=== PATIENT | male | born 1950 | race Caucasian/White ===

== ENCOUNTER 2016-09-06 06:07 | Inpatient (IN) | payer OTHER, BC ==
[2016-08-12 10:21] VITALS: BMI 22.0
--- NOTE | 2016-08-12 11:04 | PAT Medication Instructions ---
Service Date August 12, 2016. Current Home Medication List Aspirin (Aspirin Ec), 81 MG PO QAM Loratadine (Claritin), 10 MG PO QAM Modafinil (Provigil), 200 MG PO BID Multivitamin (Multivitamin), 1 TAB PO PRN Naproxen (Aleve), 220-440 MG PO BID PRN for RN Prednisone Tab (Prednisone), 10 MG PO BID PRN for tube pusher Instructions For Your Scheduled Surgery - Check with surgeon for instructions: Naproxen (Aleve), 220-440 MG PO BID PRN for RN - Continue as directed: Prednisone Tab (Prednisone), 10 MG PO BID PRN for RN - Hold the following medications the morning of surgery: Multivitamin (Multivitamin), 1 TAB PO PRN Loratadine (Claritin), 10 MG PO QAM Modafinil (Provigil), 200 MG PO BID - Take the following medications the morning of surgery with a sip of water: Aspirin (Aspirin Ec), 81 MG PO QAM (okay to continue per surgeon) - Take the following medications as scheduled the night before surgery: Modafinil (Provigil), 200 MG PO BID If you have any questions please call us at [phone] or [phone] or [phone]
--- NOTE | 2016-08-12 12:01 | DIAGNOSTIC IMAGING REPORT ---
CHEST PREADMISSION(PA/LAT) HISTORY: Preop. COMPARISON: None. FINDINGS: Poststernotomy changes and an aortic valve prosthesis. The lungs are clear. The heart is normal in size. No pleural effusions. No pneumothorax. IMPRESSION: No acute process. Electronically signed by: Fabiano Flores M.D. 08/12/2016 12:00 PM Dictated Date/Time: 08/12/2016 11:58 AM
[2016-08-12 12:45] LABS: BASO % 0.3 %; BASO ABS # 0.03 K/uL (0-0.2); COMPLETE YES; EOS % 0.2 %; IG% 0.4 %; LYMPH % 13.4 %; LYMPH ABS # 1.19 K/uL (1.2-3.4); MEAN CELL VOLUME 88.9 fL (80-100); MEAN CORPUSCULAR HEMOGLOBIN 30.1 pg (25-34); MEAN CORPUSCULAR HGB CONC 33.9 g/dl (32-36); MEAN PLATELET VOLUME 8.5 fL (7.4-10.4); MONO % 3.6 %; NEUT % 82.1 %; PLATELET COUNT 252 K/uL (130-400); RED BLOOD COUNT 4.95 M/uL (4.7-6.1); WHITE BLOOD COUNT 8.91 K/uL (4.8-10.8)
[2016-08-12 12:59] LABS: PROTHROMBIN TIME (PATIENT) 10.4 SECONDS (9.0-12.0)
[2016-08-12 13:01] LABS: URINE APPEARANCE CLEAR (CLEAR); URINE BILIRUBIN NEG (NEG); URINE COLOR YELLOW; URINE NITRITE NEG (NEG); URINE SPECIFIC GRAVITY 1.008 (1.000-1.030); UROBILINOGEN NEG (NEG); ZZUR CULT IF INDIC CLEAN CATCH NO
[2016-08-12 13:11] LABS: MANUAL MICROSCOPIC REQUIRED? NO; REVIEW REQ? NO
[2016-08-12 13:21] LABS: BUN/CREATININE RATIO 16.3 (10-20); CREATININE 0.88 mg/dl (0.60-1.40); POTASSIUM 4.7 mmol/L (3.5-5.1)
[2016-08-12 13:30] LABS: CALCIUM 9.1 mg/dl (8.5-10.1)
--- NOTE | 2016-09-02 08:55 | HISTORY & PHYSICAL EXAMINATION ---
DATE OF ADMISSION: 09/06/2016 CHIEF COMPLAINT: Bilateral knee pain. HISTORY OF PRESENT ILLNESS: Mr. Ludwig is a 66-year-old male with a 10-year history of bilateral knee pain, right is worse than the left. He rates his pain a 10/10. He has pain with his daily activities. He has limited standing and walking tolerance. Pain is worse with weightbearing. The patient ambulates with a cane. He has had injections, bracing, NSAIDs without relief. He has failed conservative treatment and is scheduled for staged total knee replacements. PAST MEDICAL HISTORY: Aortic aneurysm and MS. He denies heart disease, diabetes or DVT. PAST SURGICAL HISTORY: Aortic valve replacement, low back discectomy, triple bypass. SOCIAL HISTORY: The patient drinks 2 drinks per week. He denies tobacco use. He lives in a 3-story home. He is and retired. FAMILY HISTORY: Negative for DVT. MEDICATIONS: Provigil 200 mg twice daily, Aleve 200 mg twice daily, prednisone 10 mg 2 daily p.r.n., Claritin p.r.n., aspirin 81 mg daily. ALLERGIES: None. REVIEW OF SYSTEMS: See HPI. Ten other systems reviewed, all negative. PHYSICAL EXAMINATION: VITAL SIGNS: Height 5 feet 10, weight 158 pounds, BMI 23. GENERAL: This is a well-developed, well-nourished male who is alert and oriented x3. Mood and affect are appropriate. HEAD, EYES, EARS, NOSE, AND THROAT: Normocephalic, atraumatic. Mucous membranes are moist and intact. NECK: Supple without lymphadenopathy. HEART: Regular rate and rhythm without murmurs, rubs or gallops. LUNGS: Clear to auscultation without wheezes or rhonchi. ABDOMEN: Soft and nontender. Bowel sounds are equal and active. EXTREMITIES: No ecchymosis, redness or warmth. Thigh and calf are soft and nontender. He has varus deformity. Range of motion is from 0-115 degrees with +2 laxity. He is neurovascularly intact with +5/5 strength. X-RAY EXAMINATION: AP and lateral views show joint space narrowing and osteophyte formation with severe varus deformity. IMPRESSION: Degenerative joint disease, right knee. PLAN: The patient will be admitted for a right total knee arthroplasty. We will plan on aspirin for DVT prophylaxis. The patient is going to do outpatient physical therapy in [facility] PCP is mK Mcclellan.
[~2016-09-06] VITALS: Ht 177.8 cm; Wt 71.5 kg
[2016-09-06] VITALS (8 sets, daily range): BP systolic 123–147; BP diastolic 68–90; PULSE 61–81; TEMP 36.5–37; O2SAT 93–97; Ht 177.8 cm; Wt 71.5 kg
[~2016-09-06 06:07] MED LIST: ACETAMINOPHEN 500 MG TAB PO SCH; ASPI81TA28 PO; ATEN25TA PO; CEFAZOLIN 2000 MG/60 ML D5W 60 ML IV SCH; CLR10 PO; CeleBREX 200 MG CAP PO SCH; DEXAMETHASONE 4 MG TAB PO SCH; FAMOTIDINE 20 MG TAB PO SCH; GABAPENTIN 300 MG CAP PO SCH; LACTATED RINGER'S 1000ML 1,000 ML IV SCH; LACTATED RINGER'S 1000ML 500 ML IV ONE; METOCLOPRAMIDE HCL 10 MG TAB PO SCH; MODA1TAB PO; MULT-506 PO; NAPR1TAB9 PO; OXYCODONE HCL 10 MG TABCR (OXYCONTIN) PO SCH; POLYMYXIN B SULFATE 100,000 UNITS in NSS 100ML IR SCH; PRED10TA PO; ROPIVACAINE 5MG/ML 30 ML 150 MG, BUPIVACAINE/EPINEPHR 0.5% MPF 30 ML, KETOROLAC TROMETH... INFIL SCH; TRANEXAMIC ACID INJ 1,000 MG in SODIUM CHLORIDE 0.9% 100ML 100 ML IV SCH; VANCOMYCIN INJ 400 MG in NSS 100ML IR SCH
--- NOTE | 2016-09-06 06:49 | History & Physical Bridge Note ---
H&P Re-Evaluation Bridge Note: I have examined the patient, reviewed the History & Physical and in the interval since the performance of the History & Physical I have noted the following changes of clinical significance: No changes noted
[2016-09-06] MEDS ORDERED: BUPIVACAINE 0.25% 30 ML VIAL ONE (07:15)
[2016-09-06] MEDS ORDERED: BUPIVACAINE 0.5 % 5 MG/1 ML PF 10ML VIAL ONE (07:15)
[2016-09-06] MEDS ORDERED: ORTHO JOINT ANESTHETIC ONE (07:22)
[2016-09-06] MEDS ORDERED: BUPIVACAINE/EPINEPHRINE 0.25% 1:200,000 30 ML VIAL ONE (07:22)
[2016-09-06] MEDS ORDERED: POVIDONE-IODINE OP SOLN 30 ML BTL ONE (07:22)
[2016-09-06] MEDS ORDERED: BACITRACIN 50000 UNIT VIAL ONE (07:23)
[2016-09-06] MEDS ORDERED: MIDAZOLAM HCL 1 MG/ML 2ML VIAL ONE ×2 (08:01)
[2016-09-06] MEDS ORDERED: FENTANYL CITRATE INJ 50 MCG/1 ML 2 ML VIAL ONE (08:02)
[2016-09-06] MEDS ORDERED: HYDROCORTISONE SOD SUCCINATE 100 MG/2 ML VIAL ONE (08:40)
[2016-09-06] MEDS ORDERED: LACTATED RINGER'S 1000ML 1,000 ML IV PRN (09:16)
[2016-09-06] MEDS ORDERED: ONDANSETRON INJ 2 MG/ML 2 ML VIAL IV PRN ×2 (09:30→10:15)
[2016-09-06] MEDS ORDERED: FENTANYL CITRATE INJ 50 MCG/1 ML 2 ML VIAL IV PRN (09:30)
--- NOTE | 2016-09-06 10:04 | [facility] Post Operative Brief Note ---
Immediate Operative Summary Operative Date Sep 06, 2016. Pre-Operative Diagnosis Degenerative joint disease right knee Post-Operative Diagnosis same as preoperative diagnosis Procedure(s) Performed right total knee arthroplasty Surgeon Dr. Virk Licensed Psychologist Director Surgeon(s) Leonides Alonso PA-C Estimated Blood Loss 75mL Findings severe dz Specimens A. Right knee bone and tissue Complication(s) None Disposition Recovery Room / PACU
[2016-09-06] MEDS ORDERED: TRAMADOL HCL 50 MG TAB PO PRN (10:15)
[2016-09-06] MEDS ORDERED: SOD PHOSPHATE/SOD BIPHOSPHATE ENEMA 132 ML BTL PR PRN (10:15)
[2016-09-06] MEDS ORDERED: ALUMINUM/MAGNESIUM/SIMETH (MAALOX MAX) 30 ML UDC PO PRN (10:15)
[2016-09-06] MEDS ORDERED: KETOROLAC TROMETHAMINE 15 MG/ML VIAL IV. PRN (10:15)
[2016-09-06] MEDS ORDERED: ZOLPIDEM TARTRATE 5 MG TAB PO PRN (10:15)
[2016-09-06] MEDS ORDERED: DiphenhydrAMINE HCL 50 MG/ML VIAL IV PRN (10:15)
[2016-09-06] MEDS ORDERED: MAGNESIUM HYDROXIDE SUSP 30 ML UDC PO PRN (10:15)
[2016-09-06] MEDS ORDERED: OXYCODONE HCL IR 5 MG TAB (IMMEDIATE RELEASE) PO PRN (10:15)
[2016-09-06] MEDS ORDERED: METOCLOPRAMIDE HCL INJ 5 MG/ML 2 ML VIAL IV PRN (10:15)
[2016-09-06] MEDS ORDERED: MoRPHine SULFATE 2 MG/ML CARP IV PRN (10:15)
[2016-09-06] MEDS ORDERED: BISACODYL 10 MG SUPP PR PRN (10:15)
--- NOTE | 2016-09-06 11:01 | OPERATIVE REPORT ---
DATE OF OPERATION: 09/06/2016 PREOPERATIVE DIAGNOSIS: Severe degenerative arthritis, right knee. POSTOPERATIVE DIAGNOSIS: Same. PROCEDURE: Right total knee with patient matched implant. SURGEON: Dr. Virk. FREIGHT INSPECTOR: SHEN Garcia ANESTHESIA: Spinal. BLOOD LOSS: 75 mL. REPLACEMENT FLUIDS: 1800 mL of crystalloid. DRAINS: Hemovac x2. CULTURES: None. COMPLICATIONS: None. COMPONENTS USED: [employer] [place] Knee System: Femur size 7, tibia size 5 x 10, patella size 38. NOTE: SHEN Garcia was present and assisted throughout due to the complicated nature of this case. He helped with preparation and setup, first assisted throughout and personally closed the capsule, subcutaneous and skin layers and applied the postoperative dressing. DESCRIPTION OF PROCEDURE: Following satisfactory spinal, the patient was supine. A tourniquet was placed but not inflated. The lower extremity was prepared with ChloraPrep and draped sterilely. Following a surgical time-out, a midline incision was made with a median parapatellar arthrotomy. Hemostasis was controlled. The knee showed severe grade 4 changes with significant bone loss medially. The patella was prepared first. The patient matched femoral block was then applied. Femoral distal rotation and resection were set and completed and then the 4-in-1 block was used to finish preparation of the femur. The patient matched tibial block was applied. Tibial resection was completed. The patella was freehand cut. Soft tissue balancing was completed and a trial reduction showed good tensioning stability on the collateral ligaments, full extension and flexion to more than 120 degrees with patella tracking well. The collateral ligaments were stable. The trial components were removed. The capsule was prepared with the orthopedic cocktail and after irrigation, the components were cemented using Simplex G cement. When the cement had hardened, the knee was checked and showed good stability. A Betadine soak was performed for 3 minutes. The Betadine was then irrigated. Two drains were placed. The arthrotomy was closed with a running suture of 0 V-Loc. The subcutaneous tissues with 2-0 Vicryl and the skin with a running subcuticular stitch of 3-0 V-Loc. Dermabond and a dry dressing were applied. The patient was returned to his bed in stable condition. I attest to the content of the Intraoperative Record and any orders documented therein. Any exception s are noted below.
--- NOTE | 2016-09-06 11:04 | DIAGNOSTIC IMAGING REPORT ---
RIGHT KNEE 2 VIEWS History: Right total knee arthroplasty. Degenerative arthritis. Postop. FINDINGS: The patient is status post a right total knee arthroplasty. The hardware is intact. No fracture or dislocation. Surgical drains are in place. IMPRESSION: Right total knee arthroplasty. No evidence for hardware complication. Electronically signed by: Fabiano Flores M.D. 09/06/2016 11:02 AM Dictated Date/Time: 09/06/2016 11:02 AM
--- NOTE | 2016-09-06 11:24 | Anesthesiology Progress Note ---
Anesthesia Post Op Note Date & Time Sep 06, 2016 at 11:23 Vital Signs Pain Intensity: 0 Vital Signs Past 12 Hours Date Time Temp Pulse Resp B/P (MAP) Pulse Ox O2 Delivery O2 Flow Rate FiO2 09/06/16 11:15 67 12 114/65 95 Oxymask 2 09/06/16 11:05 67 12 119/69 95 Oxymask 2 09/06/16 10:55 75 12 111/65 97 Oxymask 9 09/06/16 10:45 75 12 126/71 97 Oxymask 9 09/06/16 10:39 36.6 81 12 120/76 97 Oxymask 9 09/06/16 06:41 36.5 73 20 147/90 97 Room Air Notes Mental Status: alert / awake / arousable, participated in evaluation Pt Amnestic to Procedure: Yes Nausea / Vomiting: adequately controlled Pain: adequately controlled Airway Patency, RR, SpO2: stable & adequate BP & HR: stable & adequate Hydration State: stable & adequate Neuraxial Anesthesia: was administered, sensory block is resolving Anesthetic Complications: no major complications apparent Pt doing well.
[2016-09-06] MEDS: D5W AND 1/2NSS + 20MEQ KCL 1,000 ML IV SCH ×2 (12:26→21:56)
[2016-09-06] MEDS: ACETAMINOPHEN 500 MG TAB PO SCH ×2 (14:08→21:53)
[2016-09-06] MEDS: MODAFINIL 100 MG TAB PO SCH (14:51)
[2016-09-06] MEDS: CEFAZOLIN IV 1,000 MG in DEXTROSE 5% 50ML 50 ML IV SCH ×2 (15:30→23:13)
[2016-09-06] MEDS ORDERED: TRANEXAMIC ACID INJ 1,000 MG in SODIUM CHLORIDE 0.9% 100ML 100 ML IV SCH (17:00)
[2016-09-06] MEDS: ASPIRIN 81 MG ECTAB PO SCH (20:43)
[2016-09-06] MEDS ORDERED: SENNA 8.6 MG TAB PO SCH (21:00)
[2016-09-07 04:05] VITALS: BP 151/72; PULSE 63; TEMP 36.9; O2SAT 96
[2016-09-07] MEDS: ACETAMINOPHEN 500 MG TAB PO SCH (05:58)
[2016-09-07 06:05] LABS: HEMATOCRIT 33.4 % (42-52); MEAN CELL VOLUME 89.5 fL (80-100); MEAN CORPUSCULAR HGB CONC 33.5 g/dl (32-36); MEAN PLATELET VOLUME 8.7 fL (7.4-10.4); PLATELET COUNT 232 K/uL (130-400); RED BLOOD COUNT 3.73 M/uL (4.7-6.1); WHITE BLOOD COUNT 13.81 K/uL (4.8-10.8)
[2016-09-07] MEDS: MODAFINIL 100 MG TAB PO SCH (06:11)
[2016-09-07 06:45] LABS: BUN/CREATININE RATIO 17.2 (10-20); CALCIUM 7.6 mg/dl (8.5-10.1); CREATININE 0.74 mg/dl (0.60-1.40); POTASSIUM 3.8 mmol/L (3.5-5.1)
--- NOTE | 2016-09-07 07:28 | Orthopedic Progress Note ---
Orthopedic Progress Note Date of Service Sep 07, 2016. Subjective Post OP Day: 1 (R TKA ) Reports: feeling well, pain controlled w PO medications, Denies: complaints, chest pain, SOB, nausea / vomiting, light headedness Objective calves soft nontender, dressing C/D/I, A&O x3, toes mobile, hemovac drainage ( 275 LAST SHIFT ) Date Time Temp Pulse Resp B/P (MAP) Pulse Ox O2 Delivery O2 Flow Rate FiO2 09/07/16 04:05 36.9 63 16 151/72 (98) 96 Room Air 09/06/16 23:15 Room Air 09/06/16 23:00 36.9 61 16 134/70 (91) 96 Room Air 09/06/16 20:10 37.0 81 18 142/80 (100) 95 Room Air 09/06/16 15:30 Nasal Cannula 2.0 09/06/16 14:46 36.7 66 16 146/78 (100) 95 Nasal Cannula 2.0 09/06/16 13:50 76 20 130/70 (90) 96 Nasal Cannula 2.0 09/06/16 12:50 36.9 65 16 125/68 (87) 93 Nasal Cannula 2.0 09/06/16 12:24 68 16 126/69 (88) 95 Nasal Cannula 2.0 09/06/16 12:15 95 Nasal Cannula 2.0 09/06/16 12:10 Nasal Cannula 2.0 09/06/16 12:05 36.8 76 16 123/69 (87) 95 Nasal Cannula 2.0 09/06/16 11:20 36.6 67 12 126/70 95 Oxymask 2 09/06/16 11:15 67 12 114/65 95 Oxymask 2 09/06/16 11:05 67 12 119/69 95 Oxymask 2 09/06/16 10:55 75 12 111/65 97 Oxymask 9 09/06/16 10:45 75 12 126/71 97 Oxymask 9 09/06/16 10:39 36.6 81 12 120/76 97 Oxymask 9 Laboratory Results 24 Hours: Test 09/07/16 05:10 Hematocrit 33.4 % Hemoglobin 11.2 g/dL Assessment & Plan Assessment: POD 1 R TKA Plan: HOME TODA WILL DO OPPT LEAVE DRESSING AND DRAIN IN PLACE WILL COME IN WED FOR DC Inhouse Planning Pain Management: Celebrex, PO Tylenol, Oxy IR DVT Prophylaxis: TEDs, SCDs, ASA Discharge Planning Discharge Planning: home with oppt Pain Management: Celebrex, PO Tylenol, Oxy IR DVT Prophylaxis: TEDs, ASA
[2016-09-07] MEDS ORDERED: DEXAMETHASONE 4 MG TAB PO SCH (07:30)
[2016-09-07] MEDS ORDERED: RXC5 PO (07:34)
[2016-09-07] MEDS ORDERED: CLB200 PO (07:34)
[2016-09-07] MEDS ORDERED: SNK PO (07:34)
[2016-09-07] MEDS ORDERED: ASPI81TA28 PO (07:34)
--- NOTE | 2016-09-07 07:39 | Discharge Instructions ---
Discharge Instructions Date of Service Sep 07, 2016. Admission Reason for Admission: Right Knee Degenerative Joint Disease Discharge Discharge Diagnosis / Problem: Right Knee Djd Discharge Goals Goal(s): Decrease discomfort, Improve function, Increase independence Activity Recommendations Activity Limitations: per Instructions/Follow-up section Weightbearing Status: Right weightbearing (as tolerated) . Instructions / Follow-Up Instructions / Follow-Up ACTIVITY RECOMMENDATIONS: SELF CARE INSTRUCTIONS AFTER TOTAL KNEE REPLACEMENT A. You may need to continue a physical therapy program after discharge from the hospital. There are several options available to you. Your doctor will assist you in selecting the best one for you. 1. An out-patient facility 2 to 3 times a week for therapy or home therapy. 2. Continue working on all exercises taught to you in the hospital. Your goals should be to increase bending of your knee to 90 degrees and beyond and to fully straighten your knee. B. You may progress at your own pace from walking with a walker or crutches to a cane; then to no assistive devices. C. Make walking a part of your daily routine. Be up as much as comfortable with rest periods throughout the day. Rest with leg elevation is very important. Use the ice wrap frequently for the first 3-4 weeks. D. There are no restrictions on activities. You may ride in a car, shop, participate in direct support staff member and all social activities. E. Wear the long elastic stockings (ANA LILIA hose) 20 hours a day for 2 weeks after surgery. They can be removed several times a day for laundering and for a bath. F. You may shower, no tub baths until cleared by your doctor. SPECIAL CARE INSTRUCTIONS: VERY IMPORTANT TO READ AND REVIEW A. There are a few signs you need to watch for after you are home. Call [facility] if you notice any of the followin. Increased severe knee pain. Some pain is expected especially when you exercise. 2. Increased swelling in your leg or knee; pain or swelling of the calf muscle in either lower leg. 3. Any fluid drainage from the incision. 4. Shortness of breath or chest pain. B. Please call [facility] at if you have any concerns or questions about your operation or recovery. The doctor or his nurse will return your call promptly. C. You must take antibiotics before dental work, bladder, bowel or other surgery. Your doctor will provide you with a permanent care to carry describing this precaution. IMPORTANT: * REMEMBER TO TAKE ASPIRIN, 81 MG, TWICE DAILY FOR 4 WEEKS UNLESS OTHERWISE DIRECTED. THIS IS YOUR BLOOD THINNER. * HIGH RISK PATIENTS MAY BE PRESCRIBED A STRONGER BLOOD THINNER. THIS WILL BE PROVIDED AT DISCHARGE. * CALL IF INCREASED PAIN, REDNESS, DRAINAGE OR FEVER GREATER THAT 101. * WEAR ANA LILIA HOSE 20 HOURS PER DAY FOR 2 WEEKS. * DERMABOND Prineo- This is a mesh tape dressing that is covered with glue. It should remain in place until the incision is properly healed, usually 10-14 days. This dressing is designed to naturally slough off. You may trim the excess mesh tape as it peels off. Incision may be briefly wet in a shower. Dry immediately by blotting with a clean, dry towel. Do not bath or swim until instructed by your doctor. Do not scratch, rub, or pick at the dressing. Do not apply any topical ointments or lotions until dressing is completely removed and/or instructed by your doctor. There may be a small piece of suture material at one end of your incision. Do not pull or trim this. If it is bothersome or catching on clothing, you may cover it with a band-aid. . FOLLOW UP VISIT: If appointment is not already scheduled: Please call [facility] to make a follow-up appointment for 2 weeks after your surgery at . Current Hospital Diet Patient's current hospital diet: Regular Diet Discharge Diet Recommended Diet: Regular Diet Procedures Procedures Performed: right total knee arthroplasty Pending Studies Studies pending at discharge: no Medical Emergencies . Who to Call and When: Medical Emergencies: If at any time you feel your situation is an emergency, please call 911 immediately. . Non-Emergent Contact Non-Emergency issues call your: Surgeon Call Non-Emergent contact if: temperature is above 101.5, your pain is not controlled, your pain is worsening, wound has increased drainage, wound has increased redness . "Provider Documentation" section prepared by Leonides Alonso. . VTE Core Measure Inpt VTE Proph given/why not?: Other Anticoagulation, T.E.D. Stockings, SCD's [place] Drug Monitoring Program Search Results: patient reviewed within database, no issues identified
[2016-09-07 07:54] VITALS: BP 142/74; PULSE 75; TEMP 36.6; O2SAT 95
[2016-09-07 08:00] VITALS: O2SAT 95
--- NOTE | 2016-09-07 08:00 | Anesthesiology Progress Note ---
Anesthesia Post Op Note Date & Time Sep 07, 2016 at 07:59 Vital Signs Vital Signs Past 12 Hours Date Time Temp Pulse Resp B/P (MAP) Pulse Ox O2 Delivery O2 Flow Rate FiO2 09/07/16 07:54 36.6 75 14 142/74 (96) 95 Room Air 09/07/16 07:47 Room Air 09/07/16 04:05 36.9 63 16 151/72 (98) 96 Room Air 09/06/16 23:15 Room Air 09/06/16 23:00 36.9 61 16 134/70 (91) 96 Room Air 09/06/16 20:10 37.0 81 18 142/80 (100) 95 Room Air Notes Mental Status: alert / awake / arousable, participated in evaluation Pt Amnestic to Procedure: Yes Nausea / Vomiting: adequately controlled Pain: adequately controlled Airway Patency, RR, SpO2: stable & adequate BP & HR: stable & adequate Hydration State: stable & adequate Neuraxial Anesthesia: was administered, sensory block resolved Anesthetic Complications: no major complications apparent
[2016-09-07] MEDS: D5W AND 1/2NSS + 20MEQ KCL 1,000 ML IV SCH (08:18)
[2016-09-07] MEDS: ASPIRIN 81 MG ECTAB PO SCH (08:19)
[2016-09-07 08:38] VITALS: BP 142/74; PULSE 75; TEMP 36.6; O2SAT 95
[2016-09-07] MEDS ORDERED: LORATADINE 10 MG TAB PO SCH (09:00)
[2016-09-07] MEDS ORDERED: MULTIVITAMIN TAB PO SCH (09:00)
[2016-09-07] MEDS ORDERED: PANTOprazole SOD 40 MG TAB PO SCH (09:00)
[2016-09-08] MEDS ORDERED: CeleBREX 200 MG CAP PO SCH (21:00)
--- NOTE | 2016-09-09 15:43 | DISCHARGE SUMMARY ---
DISCHARGE DIAGNOSIS: Degenerative joint disease, right knee. SECONDARY DIAGNOSES: Aortic aneurysm, history of MS. CONSULTS: None. COMPLICATIONS: None. PROCEDURES: Right total knee arthroplasty performed by Dr. Ilir Virk on 09/06/2016. BRIEF HISTORY: As dictated in history and physical. HOSPITAL SUMMARY: The patient was admitted on the above-noted date and had the above-noted surgery performed which he tolerated well. On the first postoperative day, patient was feeling well. Pain was controlled. Calves were soft, nontender. Dressings clean, dry and intact. Toes were mobile. Vital signs were stable. He was afebrile. Systolic blood pressures fluctuated, highest being 151, but patient was remaining asymptomatic. Hemoglobin was 11.2 and he was started on physical therapy protocol and continued on DVT prophylaxis and pain management. He was progressing well with his physical therapy and remaining stable and it was felt that he could be discharged to home with dressings and drain in with plans for home health [facility] services to remove the dressing and drain the following day. He was thusly discharged to home on 09/07/2016. For further review, please see chart. LAB AND X-RAY DATA: As per chart. DISCHARGE INSTRUCTIONS: The patient was discharged to home in satisfactory condition on 09/07/2016. DIET: Regular. ACTIVITY: Weightbearing as tolerated right lower extremity. Follow TKA instruction sheets and special care instructions as noted. Follow up with Dr. Virk in 2 weeks. The patient to call for appointment if one has not been made for you. DISCHARGE MEDICATIONS: Celebrex 200 mg p.o. b.i.d., oxycodone 5-10 mg p.o. q. 4 hours p.r.n., senna 17.2 mg at bedtime. Resume taking atenolol 25 mg p.o. daily, loratadine 10 mg p.o. q.a.m., modafinil 200 mg p.o. b.i.d., multivitamin 1 tab p.o. p.r.n., prednisone 10 mg p.o. b.i.d. p.r.n., aspirin changed to 81 mg p.o. b.i.d. for 30 days and then resume once daily dosing. Stop taking naproxen.
[2016-10-04] MEDS ORDERED: ACET-1256 PO (08:19)
[2016-10-04] MEDS ORDERED: ASPI-435 PO (08:19)
[2016-10-04] MEDS ORDERED: CLB100 PO (08:19)
== END 2016-09-07 11:19 | disposition home or self-care (01) | DRG 470 ==
LOC: C.ACU 06:07 → C.3E 06:30 → ENRESERV 11:20
PROVIDERS: ADMIT Orthopaedic Surgery; ATTEND Orthopaedic Surgery
PROC: 0SRC0J9 Replacement of Right Knee Joint with Synthetic Substitute, Cemented, Open Approach (ICD-10-PCS; principal; 2016-09-06 08:15)
DX: M17.0 Bilateral primary osteoarthritis of knee (principal); M21.161 Varus deformity, not elsewhere classified, right knee; G35 Multiple sclerosis; I10 Essential (primary) hypertension; I25.10 Atherosclerotic heart disease of native coronary artery without angina pectoris; I71.9 Aortic aneurysm of unspecified site, without rupture; Z72.0 Tobacco use; Z95.2 Presence of prosthetic heart valve; Z95.1 Presence of aortocoronary bypass graft; Z79.82 Long term (current) use of aspirin; Z79.52 Long term (current) use of systemic steroids; Z79.899 Other long term (current) drug therapy

== ENCOUNTER 2016-10-11 11:51 | Inpatient (IN) | payer OTHER, BC ==
[2016-10-04 08:30] VITALS: Ht 177.8 cm; Wt 71.5 kg
--- NOTE | 2016-10-08 18:19 | History and Physical ---
History & Physical Date Oct 08, 2016. Chief Complaint LEFT KNEE PAIN History of Present Illness The patient is a 66 year old male with complaints of left knee pain for several years now. Had right tka and doing well. Cant do activity of daily living. has tried pt, nsaids and injections. hes ready for knee replacement. Past Medical/Surgical History Surgical Problems: (1) Post-operative state AVR RIGHT TKA Additional History Hepatic Disease: No Endocrine Disorder: No Kidney Disease: No Hypertension: No Heart Disease: Yes (hx of aortic valve replacement.) Bleeding Tendencies: No Infectious Diseases: No Allergies Coded Allergies: No Known Allergies (Unverified , 10/04/16) Home Medications Scheduled Aspirin (Aspirin 81), 81 MG PO QAM Celecoxib (Celebrex), 1 CAP PO BID Modafinil (Provigil), 200 MG PO BID Multivitamin (Multivitamin), 1 TAB PO PRN Scheduled PRN Acetaminophen (Tylenol), 1,000 MG PO BID PRN for Pain Physical Examination Skin: warm/dry, no rash Eyes: normal inspection, EOMI, sclerae normal ENT: normal ENT inspection, pharynx normal Head: normocephalic, atraumatic Neck: supple, no adenopathy, trachea midline Respiratory/Chest: lungs clear, normal breath sounds, no respiratory distress Cardiovascular: regular rate, rhythm, no edema, no murmur Abdomen / GI: normal bowel sounds, non tender Back: normal inspection Extremities: + pertinent finding (pain with motion of left knee. decreased motion as well. ) Neurologic/Psych: no motor/sensory deficits, alert, normal reflexes, oriented x 3 Diagnosis DJD LEFT KNEE Plan of Treatment ADMIT TO [facility]. PLAN IS FOR LEFT KNEE REPLACEMENT.
[~2016-10-11] VITALS: Ht 177.8 cm; Wt 71.5 kg
[2016-10-11] VITALS (8 sets, daily range): BP systolic 121–146; BP diastolic 63–91; PULSE 61–95; TEMP 36.4–37; O2SAT 94–97
[~2016-10-11 11:51] MED LIST changes: +ACET-1256 PO; +ASPI-435 PO; -ASPI81TA28 PO; -ATEN25TA PO; +BUPIVACAINE 0.25% 30 ML VIAL ONE; +BUPIVACAINE 0.5 % 5 MG/1 ML PF 10ML VIAL ONE; +CEFAZOLIN 1000MG/55 ML D5W 55 ML IV SCH; -CEFAZOLIN 2000 MG/60 ML D5W 60 ML IV SCH; +CLB100 PO; -CLR10 PO; +FENTANYL CITRATE INJ 50 MCG/1 ML 2 ML VIAL ONE; -GABAPENTIN 300 MG CAP PO SCH; +MIDAZOLAM HCL 1 MG/ML 2ML VIAL ONE; -NAPR1TAB9 PO; -OXYCODONE HCL 10 MG TABCR (OXYCONTIN) PO SCH; -POLYMYXIN B SULFATE 100,000 UNITS in NSS 100ML IR SCH; -PRED10TA PO; -TRANEXAMIC ACID INJ 1,000 MG in SODIUM CHLORIDE 0.9% 100ML 100 ML IV SCH; -VANCOMYCIN INJ 400 MG in NSS 100ML IR SCH
[2016-10-11] MEDS ORDERED: POVIDONE-IODINE OP SOLN 30 ML BTL ONE (12:32)
[2016-10-11] MEDS ORDERED: ORTHO JOINT ANESTHETIC ONE (12:32)
[2016-10-11] MEDS ORDERED: BACITRACIN 50000 UNIT VIAL ONE (12:32)
[2016-10-11] MEDS: TRANEXAMIC ACID INJ 1,000 MG in SODIUM CHLORIDE 0.9% 100ML 100 ML IV SCH ×2 (12:47→17:18)
[2016-10-11] MEDS ORDERED: KETOROLAC TROMETHAMINE 15 MG/ML VIAL IV. PRN (13:00)
[2016-10-11] MEDS ORDERED: EpHEDrine SULFATE INJ 50 MG/ML AMP IV PRN (13:00)
[2016-10-11] MEDS ORDERED: HYDROmorphone INJ 2 MG/ML SYR/VIAL IV PRN (13:00)
[2016-10-11] MEDS ORDERED: PHENYLEPHRINE 100MCG/ML 5ML SYR IV PRN (13:00)
[2016-10-11] MEDS ORDERED: ATROPINE SULFATE 0.1 MG/ML 5ML SYR IV PRN (13:00)
[2016-10-11] MEDS ORDERED: ONDANSETRON INJ 2 MG/ML 2 ML VIAL IV PRN ×2 (13:00→14:30)
[2016-10-11] MEDS ORDERED: PROPOFOL IV EMULSION 10 MG/ML 20 ML VIAL IV ONE ×2 (13:54→14:31)
--- NOTE | 2016-10-11 14:26 | [facility] Post Operative Brief Note ---
Immediate Operative Summary Operative Date Oct 11, 2016. Pre-Operative Diagnosis Degenerative joint disease left knee Post-Operative Diagnosis Degenerative joint disease left knee Procedure(s) Performed Left total knee arthroplasty Surgeon Dr. Timi Kumar Journeyman Press Operator Surgeon(s) Leonides Alonso PA-C Estimated Blood Loss 20cc Findings as above Specimens A. Left knee bone and tissue Complication(s) None Disposition Recovery Room / PACU
[2016-10-11] MEDS ORDERED: ALUMINUM/MAGNESIUM/SIMETH (MAALOX MAX) 30 ML UDC PO PRN (14:30)
[2016-10-11] MEDS ORDERED: BISACODYL 10 MG SUPP PR PRN (14:30)
[2016-10-11] MEDS ORDERED: MAGNESIUM HYDROXIDE SUSP 30 ML UDC PO PRN (14:30)
[2016-10-11] MEDS ORDERED: ZOLPIDEM TARTRATE 5 MG TAB PO PRN (14:30)
[2016-10-11] MEDS ORDERED: OXYCODONE HCL IR 5 MG TAB (IMMEDIATE RELEASE) PO PRN (14:30)
--- NOTE | 2016-10-11 15:42 | Anesthesiology Progress Note ---
Anesthesia Post Op Note Date & Time Oct 11, 2016 at 15:42 Vital Signs Pain Intensity: 0 Vital Signs Past 12 Hours Date Time Temp Pulse Resp B/P (MAP) Pulse Ox O2 Delivery O2 Flow Rate FiO2 10/11/16 15:35 70 18 119/68 95 Nasal Cannula 2 10/11/16 15:25 63 14 124/75 95 Nasal Cannula 2 10/11/16 15:15 76 18 116/74 95 Nasal Cannula 2 10/11/16 15:05 93 14 112/71 95 Nasal Cannula 2 10/11/16 14:59 36.2 84 12 116/69 95 Nasal Cannula 2 10/11/16 12:23 96 Room Air 10/11/16 12:21 36.5 95 20 138/91 Notes Mental Status: alert / awake / arousable, participated in evaluation Pt Amnestic to Procedure: Yes Nausea / Vomiting: adequately controlled Pain: adequately controlled Airway Patency, RR, SpO2: stable & adequate BP & HR: stable & adequate Hydration State: stable & adequate Anesthetic Complications: no major complications apparent
[2016-10-11] MEDS: SODIUM CHLORIDE 0.9% 1000ML 1,000 ML IV SCH (17:19)
--- NOTE | 2016-10-11 18:31 | OPERATIVE REPORT ---
DATE OF OPERATION: 10/11/2016 PREOPERATIVE DIAGNOSIS: Degenerative joint disease of the left knee. POSTOPERATIVE DIAGNOSIS: Same. PROCEDURES: Left total knee arthroplasty with the use of patient matched implants. SALVAGE ENGINEER: SHEN Garcia certified. ANESTHESIA: Spinal. COMPLICATIONS: Zero. The patient tolerated the procedure well. No complications. IMPLANTS USED: Cornejo and [place] II knee size 6 cemented femoral component, size 6 tibial component size 9 PS insert, size 41 all poly patella. INDICATIONS: Mr. Ludwig is a pleasant male who has unfortunately failed all forms of conservative measures. Therefore, he has decided to undergo elective surgical intervention. All risks and benefits of the surgery were discussed with the patient and the family in entirety. PROCEDURE: The patient was brought to the operating room and properly identified by myself, anesthesia, and staff. He was given a spinal anesthetic and placed on the operating table in the supine position. Tourniquets were applied to the left upper thigh. The leg was then prepped and draped in usual sterile fashion. We made a standard midline approach over the patella and dissected down through the subcutaneous tissue to identify the capsule and performed a medial capsulotomy with the patella everted and the knee flexed. The patient-matched implant was then put onto the femur. The femur measured to be a size 6 This was then put into place. We made the appropriate cuts and then placed a retractor behind the proximal tibia to retract anteriorly. We then placed the patient-matched knee implant on the tibia. It measured to be a size 6. A size 9 guide was then put in place. We used the tibial punch then put the trial components into place. We had very good range of motion, excellent stability, and excellent patella tracking. We removed the trial components and irrigated the wound. We impacted the components in place using antibiotic cement. All excess cement was removed. We then irrigated the wound once more. We closed the capsule with 0 PDS suture, deep dermis with 2-0 Vicryl, and finally the skin with amanda. A sterile dressing was applied. The patient was taken to the recovery room in stable condition. Due to the complex nature of the procedure, the entire surgery was performed with the operational assistance of the (MARCELLA). The doctor's assistant was under direct supervision, was involved in the actual performance of all aspects of the surgical procedure including hemostasis, tissue retraction and incision, instrument management, patient positioning, and wound closure. I attest to the content of the Intraoperative Record and any orders documented therein. Any exception s are noted below.
[2016-10-11] MEDS: CeleBREX 200 MG CAP PO SCH (20:36)
[2016-10-11] MEDS: ASPIRIN 81 MG ECTAB PO SCH (20:36)
[2016-10-11] MEDS: DOCUSATE SODIUM 100 MG CAP PO SCH (20:36)
[2016-10-11] MEDS: ACETAMINOPHEN 500 MG TAB PO SCH (20:36)
[2016-10-11] MEDS: MODAFINIL 100 MG TAB PO SCH (20:37)
[2016-10-11] MEDS ORDERED: DEXTROSE 5% IV SCH (22:00)
[2016-10-11] MEDS ORDERED: CEFAZOLIN IV SCH (22:00)
[2016-10-11] MEDS: CEFAZOLIN IV 1,000 MG in DEXTROSE 5% 50ML 50 ML IV SCH (22:58)
[2016-10-12] MEDS: SODIUM CHLORIDE 0.9% 1000ML 1,000 ML IV SCH ×2 (01:44→10:01)
[2016-10-12 03:10] VITALS: BP 142/67; PULSE 53; TEMP 36.8; O2SAT 98
[2016-10-12] MEDS: ACETAMINOPHEN 500 MG TAB PO SCH (04:14)
[2016-10-12] MEDS: CEFAZOLIN IV 1,000 MG in DEXTROSE 5% 50ML 50 ML IV SCH (05:46)
[2016-10-12 05:59] LABS: HEMATOCRIT 34.6 % (42-52); MEAN CELL VOLUME 90.8 fL (80-100); MEAN CORPUSCULAR HEMOGLOBIN 30.4 pg (25-34); MEAN CORPUSCULAR HGB CONC 33.5 g/dl (32-36); MEAN PLATELET VOLUME 8.6 fL (7.4-10.4); PLATELET COUNT 248 K/uL (130-400); RED BLOOD COUNT 3.81 M/uL (4.7-6.1); WHITE BLOOD COUNT 14.05 K/uL (4.8-10.8)
[2016-10-12] MEDS ORDERED: DEXAMETHASONE INJ 10 MG in SYRINGE 0 ML IV ONE (07:30)
--- NOTE | 2016-10-12 07:49 | Orthopedic Progress Note ---
Orthopedic Progress Note Date of Service Oct 12, 2016. Subjective Post OP Day: 1 Reports: feeling well, Denies: chest pain, SOB, nausea / vomiting, light headedness, calf pain Objective calves soft nontender, N/V intact, dressing C/D/I, A&O x3, toes mobile, hemovac drainage (150/500cc per shift) Date Time Temp Pulse Resp B/P (MAP) Pulse Ox O2 Delivery O2 Flow Rate FiO2 10/12/16 07:20 Room Air 10/12/16 03:10 36.8 53 14 142/67 (92) 98 Room Air 10/11/16 23:50 Room Air 10/11/16 23:21 36.9 61 16 146/72 (96) 97 Room Air 10/11/16 19:38 36.4 78 16 121/63 (82) 95 Nasal Cannula 2.0 10/11/16 18:19 37.0 71 16 128/68 (88) 95 Nasal Cannula 2.0 10/11/16 17:15 36.4 81 17 121/66 (84) 95 Nasal Cannula 2.0 10/11/16 17:15 95 Nasal Cannula 2.0 10/11/16 16:51 36.6 74 16 133/73 (93) 94 Nasal Cannula 2.0 10/11/16 16:15 36.4 66 16 135/73 (93) 95 Nasal Cannula 2.0 10/11/16 16:15 Nasal Cannula 2.0 10/11/16 16:15 Nasal Cannula 2.0 10/11/16 16:00 60 15 116/68 94 Nasal Cannula 2 10/11/16 15:45 36.2 63 20 124/66 93 Nasal Cannula 2 10/11/16 15:35 70 18 119/68 95 Nasal Cannula 2 10/11/16 15:25 63 14 124/75 95 Nasal Cannula 2 10/11/16 15:15 76 18 116/74 95 Nasal Cannula 2 10/11/16 15:05 93 14 112/71 95 Nasal Cannula 2 10/11/16 14:59 36.2 84 12 116/69 95 Nasal Cannula 2 10/11/16 12:23 96 Room Air 10/11/16 12:21 36.5 95 20 138/91 Laboratory Results 24 Hours: Test 10/12/16 05:16 Hematocrit 34.6 % Hemoglobin 11.6 g/dL Assessment & Plan Assessment: POD#1 sp left TKA Inhouse Planning Pain Management: Celebrex, PO Tylenol, Oxy IR DVT Prophylaxis: TEDs, SCDs, ASA Discharge Planning Discharge Planning: home with oppt (DC HOME TODAY WITH DRAIN INTACT.)
[2016-10-12 07:50] VITALS: BP 132/68; PULSE 72; TEMP 36.7; O2SAT 95
[2016-10-12] MEDS ORDERED: RXC5 PO (07:52)
[2016-10-12] MEDS ORDERED: CLB100 PO (07:52)
[2016-10-12] MEDS ORDERED: ASPI-435 PO (07:52)
[2016-10-12] MEDS ORDERED: ACET-1256 PO (07:52)
[2016-10-12] MEDS ORDERED: ONDA8TAB6 PO (07:52)
--- NOTE | 2016-10-12 07:53 | Discharge Instructions ---
Discharge Instructions Date of Service Oct 12, 2016. Admission Reason for Admission: Left Knee Osteoarthritis Discharge Discharge Diagnosis / Problem: SP LEFT TKA Discharge Goals Goal(s): Decrease discomfort, Improve function, Increase independence Activity Recommendations Activity Limitations: per Instructions/Follow-up section ACTIVITY RECOMMENDATIONS: SELF CARE INSTRUCTIONS AFTER TOTAL KNEE REPLACEMENT A. You may need to continue a physical therapy program after discharge from the hospital. There are several options available to you. Your doctor will assist you in selecting the best one for you. 1. An out-patient facility 2 to 3 times a week for therapy or home therapy. 2. Continue working on all exercises taught to you in the hospital. Your goals should be to increase bending of your knee to 90 degrees and beyond and to fully straighten your knee. B. You may progress at your own pace from walking with a walker or crutches to a cane; then to no assistive devices. C. Make walking a part of your daily routine. Be up as much as comfortable with rest periods throughout the day. Rest with leg elevation is very important. Use the ice wrap frequently for the first 3-4 weeks. D. There are no restrictions on activities. You may ride in a car, shop, participate in ointment mill tender and all social activities. E. Wear the long elastic stockings (ANA LILIA hose) 20 hours a day for 2 weeks after surgery. They can be removed several times a day for laundering and for a bath. F. You may shower, no tub baths until cleared by your doctor. SPECIAL CARE INSTRUCTIONS: VERY IMPORTANT TO READ AND REVIEW A. There are a few signs you need to watch for after you are home. Call [facility] [place] if you notice any of the followin. Increased severe knee pain. Some pain is expected especially when you exercise. 2. Increased swelling in your leg or knee; pain or swelling of the calf muscle in either lower leg. 3. Any fluid drainage from the incision. 4. Shortness of breath or chest pain. B. Please call [facility] at if you have any concerns or questions about your operation or recovery. The doctor or his nurse will return your call promptly. C. You must take antibiotics before dental work, bladder, bowel or other surgery. Your doctor will provide you with a permanent care to carry describing this precaution. IMPORTANT: * REMEMBER TO TAKE ASPIRIN, 81 MG, TWICE DAILY FOR 4 WEEKS UNLESS OTHERWISE DIRECTED. THIS IS YOUR BLOOD THINNER. * HIGH RISK PATIENTS MAY BE PRESCRIBED A STRONGER BLOOD THINNER. THIS WILL BE PROVIDED AT DISCHARGE. * CALL IF INCREASED PAIN, REDNESS, DRAINAGE OR FEVER GREATER THAT 101. * WEAR ANA LILIA HOSE 20 HOURS PER DAY FOR 2 WEEKS. DERMABOND Prineo- This is a mesh tape dressing that is covered with glue. It should remain in place until the incision is properly healed, usually 10-14 days. This dressing is designed to naturally slough off. You may trim the excess mesh tape as it peels off. Incision may be briefly wet in a shower. Dry immediately by blotting with a clean, dry towel. Do not bath or swim until instructed by your doctor. Do not scratch, rub, or pick at the dressing. Do not apply any topical ointments or lotions until dressing is completely removed and/or instructed by your doctor. There may be a small piece of suture material at one end of your incision. Do not pull or trim this. If it is bothersome or catching on clothing, you may cover it with a band-aid. FOLLOW UP VISIT: If appointment is not already scheduled: Please call [facility] [place] to make a follow-up appointment for 2 weeks after your surgery at . . Current Hospital Diet Patient's current hospital diet: Regular Diet Discharge Diet Recommended Diet: Regular Diet Procedures Procedures Performed: Left total knee arthroplasty Pending Studies Studies pending at discharge: no Medical Emergencies . Who to Call and When: Medical Emergencies: If at any time you feel your situation is an emergency, please call 911 immediately. . Non-Emergent Contact Non-Emergency issues call your: Surgeon . "Provider Documentation" section prepared by Netta De. . VTE Core Measure Inpt VTE Proph given/why not?: Other Anticoagulation, T.E.D. Stockings, SCD's
[2016-10-12] MEDS: MODAFINIL 100 MG TAB PO SCH (08:30)
[2016-10-12] MEDS: CeleBREX 200 MG CAP PO SCH (08:31)
[2016-10-12] MEDS: ASPIRIN 81 MG ECTAB PO SCH (08:32)
[2016-10-12] MEDS: DOCUSATE SODIUM 100 MG CAP PO SCH (08:34)
[2016-10-12] MEDS ORDERED: PANTOprazole SOD 40 MG TAB PO SCH (09:00)
[2016-10-12 09:19] VITALS: BP 132/68; PULSE 72; TEMP 36.7; O2SAT 95
--- NOTE | 2016-10-12 20:54 | DISCHARGE SUMMARY ---
DISCHARGE DIAGNOSIS: Degenerative joint disease, left knee. SECONDARY DIAGNOSIS: Heart disease with aortic valve replacement. CONSULTS: None. COMPLICATIONS: None. PROCEDURE: Left total knee arthroplasty performed by Dr. Kumar on 10/11/2016. BRIEF HISTORY: As dictated in history and physical. HOSPITAL SUMMARY: The patient was admitted on the above noted date and had the above noted surgery performed which he tolerated well. On the first postoperative day, the patient was feeling well and had no complaints. Calves were soft and nontender, neurovascularly intact. Dressings were clean, dry and intact. Toes were mobile. Vital signs were stable. He was afebrile. Hemoglobin was 11.6 and he was started on physical therapy protocol and continued on DVT prophylaxis and pain management. He progressed well with physical therapy and was otherwise remaining stable and it was thought he could be discharged to home on 10/12/2016. For further review, please see chart. LAB AND X-RAY DATA: As per chart. DISCHARGE INSTRUCTIONS: The patient was discharged to home in satisfactory condition on 10/12/2016. DIET: Regular. ACTIVITY: Weightbearing as tolerated, left lower extremity. Follow TKA instruction sheets and special care instructions as noted. Follow up with Dr. Kumar in 2 weeks. The patient to call for appointment if one has not been made for you. DISCHARGE MEDICATIONS: Zofran 8 mg p.o. q. 8 hours p.r.n., oxycodone 5-10 mg p.o. q. 4 hours p.r.n., Celebrex 100 mg p.o. b.i.d., modafinil 200 mg p.o. b.i.d., multivitamin 1 tab p.o. p.r.n., acetaminophen 1000 mg p.o. q. 8 hours for 30 days, aspirin 81 mg p.o. b.i.d. for 30 days and then resume once daily dosing.
== END 2016-10-12 12:07 | disposition home or self-care (01) | DRG 470 ==
LOC: C.ACU 11:51 → C.3E 14:29 → ENRESERV 15:53
PROVIDERS: ADMIT Orthopaedic Surgery; ATTEND Orthopaedic Surgery
PROC: 0SRD0J9 Replacement of Left Knee Joint with Synthetic Substitute, Cemented, Open Approach (ICD-10-PCS; principal; 2016-10-11 13:45)
DX: M17.12 Unilateral primary osteoarthritis, left knee (principal); Z95.2 Presence of prosthetic heart valve; Z96.651 Presence of right artificial knee joint